=== PATIENT | male | born 1980 | race Caucasian/White ===

== ENCOUNTER → 2016-11-19 | Outpatient (CLI) | payer MEDICAID ==
[2016-11-19 08:13] LABS: Basophils % (A) 1 %; CH 32.3; CHCM 35.4; Eosinophils # (A) 0.2 k/uL (0-0.7); Eosinophils % (A) 3 %; HDW 2.72; HGB 15.8 gm/dL (13.0-17.5); Luc # (Auto) 0.14; Luc % (Auto) 2; Lymphocytes # (A) 1.8 k/uL (1.0-4.8); Lymphocytes % (A) 30 %; MCH 32.2 pg (25.0-35.0); MCHC 35.1 g/dL (31.0-37.0); MCV 91.5 fL (80.0-100.0); Mean Platelet Volume 6.9; Monocytes # (A) 0.4 k/uL (0-1.0); Monocytes % (A) 6 %; Neutrophils # (A) 3.4 k/uL (1.3-7.7); Neutrophils % (A) 58 %; RBC 4.92 m/uL (4.30-5.90); RDW 13.1 % (11.5-15.5); WBC 5.9 k/uL (3.8-10.6); WBC (Perox) 5.57
[2016-11-19 11:39] LABS: ALT 38 U/L (21-72); AST 27 U/L (17-59); Alkaline Phosphatase 85 U/L (38-126); Anion Gap 9 mmol/L; Blood Urea Nitrogen 21 mg/dL (9-20); Calcium 9.5 mg/dL (8.4-10.2); Carbon Dioxide 24 mmol/L (22-30); Chloride 107 mmol/L (98-107); Cholesterol 187 mg/dL (<200); Glucose 93 mg/dL (74-99); HDL Cholesterol 88 mg/dL (40-60); Non-African American GFR(MDRD) >60 (>60 ml/min/1.73 sqM); Potassium 4.4 mmol/L (3.5-5.1); Sodium 140 mmol/L (137-145); Total Bilirubin 0.7 mg/dL (0.2-1.3); Total Protein 7.3 g/dL (6.3-8.2); Triglycerides 81 mg/dL (<150)
[2016-11-19 13:12] LABS: Hemoglobin A1C 4.8 % (4.2-6.1)
== END ==
LOC: LABWHC1 07:33
PROVIDERS: ATTEND Family Medicine
DX: Z00.00 Encounter for general adult medical examination without abnormal findings (principal); Z13.220 Encounter for screening for lipoid disorders; R73.9 Hyperglycemia, unspecified; Z13.21 Encounter for screening for nutritional disorder; G40.909 Epilepsy, unspecified, not intractable, without status epilepticus
CPT/HCPCS: 36415; 80053; 80061; 80185; 82306; 83036; 84443; 85025

== ENCOUNTER → 2016-12-17 | Outpatient (CLI) | payer MEDICAID | END | disposition home or self-care (01) | LOC: LABWHC1 07:42 | PROVIDERS: ATTEND Family Medicine | DX: R56.9 Unspecified convulsions (principal) | CPT/HCPCS: 36415; 80185 ==

== ENCOUNTER 2017-10-21 09:06 | Observation (INO) | payer MEDICAID ==
[2017-10-21] MEDS ORDERED: ASPIRIN 81 MG PO STA (09:35)
[2017-10-21] MEDS ORDERED: NITROGLYCERIN OINT 1 INCH/GM PACKET TOPICAL STA (09:35)
[2017-10-21] MEDS ORDERED: MORPHINE SULFATE/PF 10MG/10ML VL IVP STA (09:35)
[2017-10-21] MEDS ORDERED: SODIUM CHLORIDE 0.9% 1,000 ML IV STA (09:35)
[2017-10-21] MEDS ORDERED: ONDANSETRON 4 MG/2 ML VIAL IVP STA (09:35)
[2017-10-21 09:58] LABS: Basophils % (A) 1 %; Eosinophils # (A) 0.2 k/uL (0-0.7); Eosinophils % (A) 4 %; HCT 41.7 % (39.0-53.0); HGB 15.6 gm/dL (13.0-17.5); Hyperchromasia Slight; Lymphocytes # (A) 1.2 k/uL (1.0-4.8); Lymphocytes % (A) 25 %; MCH 31.8 pg (25.0-35.0); MCHC 37.5 g/dL (31.0-37.0); MCV 84.9 fL (80.0-100.0); Mean Platelet Volume 6.6; Monocytes # (A) 0.3 k/uL (0-1.0); Monocytes % (A) 5 %; Neutrophils # (A) 3.2 k/uL (1.3-7.7); Neutrophils % (A) 64 %; Platelet Count 175 k/uL (150-450); RBC 4.91 m/uL (4.30-5.90)
[2017-10-21 10:11] LABS: ALT 41 U/L (21-72); AST 29 U/L (17-59); Albumin 4.4 g/dL (3.5-5.0); Alkaline Phosphatase 72 U/L (38-126); Anion Gap 15 mmol/L; Blood Urea Nitrogen 16 mg/dL (9-20); Calcium 9.4 mg/dL (8.4-10.2); Carbon Dioxide 21 mmol/L (22-30); Chloride 105 mmol/L (98-107); Glucose 85 mg/dL (74-99); Magnesium 1.9 mg/dL (1.6-2.3); Potassium 4.4 mmol/L (3.5-5.1); Sodium 141 mmol/L (137-145); Total Bilirubin 0.4 mg/dL (0.2-1.3); Total Protein 7.1 g/dL (6.3-8.2)
--- NOTE | 2017-10-21 10:18 | XR ---
EXAMINATION TYPE: XR chest 2V DATE OF EXAM: 10/21/2017 COMPARISON: NONE HISTORY: Right-sided chest pain. TECHNIQUE: Frontal and lateral views of the chest are obtained. FINDINGS: There is no focal air space opacity, pleural effusion, or pneumothorax seen. The cardiac silhouette size is within normal limits. The osseous structures are intact. IMPRESSION: No acute cardiopulmonary process.
[2017-10-21 10:20] LABS: D-Dimer 0.23 mg/L FEU (<0.60); INR 1.1 (<1.2); Partial Thromboplastin Time 24.7 sec (22.0-30.0); Prothrombin Time 10.6 sec (9.0-12.0)
[2017-10-21 10:53] LABS: Creatine Kinase 127 U/L (55-170)
[2017-10-21 10:57] LABS: Creatine Kinase MB 0.6 ng/mL (0.0-2.4); Troponin I <0.012 ng/mL (0.000-0.034)
--- NOTE | 2017-10-21 11:15 | ED ---
Chest Pain HPI - General Chief Complaint: Chest Pain Stated Complaint: Chest pain Time Seen by Provider: 10/21/17 09:26 Source: patient Mode of arrival: wheelchair Limitations: no limitations - History of Present Illness Initial Comments: 37 years old gentleman presented with a chest pain started last night 8 PM, pain been off-and-on and night gets worse with the deep breaths, he has no history of coronary artery disease in the past he has a history of seizure disorder he has been pretty compliant with his Dilantin he said he took him this morning chest pain is 2/10 but he moves septic 6/10 when he . No headaches no neck stiffness has chest pain no abdominal pain no frequency urgency dysuria no symptoms of TIA or CVA - Related Data Home Medications Medication Instructions Recorded Confirmed Ibuprofen 400 mg PO Q6H PRN 10/21/17 10/21/17 Phenytoin Sodium Extended 300 mg PO QAM 10/21/17 10/21/17 [Dilantin] Allergies Allergy/AdvReac Type Severity Reaction Status Date / Time No Known Allergies Allergy Verified 10/21/17 09:37 Review of Systems ROS Statement: Those systems with pertinent positive or pertinent negative responses have been documented in the HPI. ROS Other: All systems not noted in ROS Statement are negative. EKG Findings - EKG Comments: EKG Findings:: EKG is normal sinus rhythm ventricular rate is 81 CT interval is 160 QRS duration is 86 QT is QT/QTC 346/401 at aVF this EKG reveals some T-wave flattening in lead [address] elevation or ST depression. Noticed any other leads Past Medical History Past Medical History: Seizure Disorder History of Any Multi-Drug Resistant Organisms: None Reported Past Surgical History: AICD, Tonsillectomy Past Psychological History: No Psychological Hx Reported Smoking Status: Never smoker Past Alcohol Use History: Occasional Past Drug Use History: None Reported General Exam - General Exam Comments Initial Comments: General: The patient is awake and alert, in no distress, and does not appear acutely ill. Skin: Skin is warm and dry and no rashes or lesions are noted. Eye: Pupils are equal, round and reactive to light, extra-ocular movements are intact; there is normal conjunctiva bilaterally. Ears, nose, mouth and throat: There are moist mucous membranes and no oral lesions. Neck: The neck is supple, there is no tenderness or JVD. Cardiovascular: There is a regular rate and rhythm. No murmur, rub or gallop is appreciated. Respiratory: To auscultation bilateral, no wheezing no rhonchi no distress respiratory wade noticed Gastrointestinal: Soft, non-distended, non-tender abdomen without masses or organomegaly noted. There is no rebound or guarding present. Bowel sounds are unremarkable. Back: There is no tenderness to palpation in the midline. There is no obvious deformity. Musculoskeletal: Normal ROM, no tenderness, There is no pedal edema. There is no calf tenderness or swelling. No cords were appreciated. Neurological: CN II-XII intact, Cranial nerves III through XII are intact. There are no obvious motor or sensory deficits. Coordination appears grossly intact. Speech is normal. Psychiatric: Cooperative, appropriate mood & affect, normal judgment. Limitations: no limitations Course Vital Signs 10/21/17 10/21/17 10/21/17 09:18 09:31 10:31 Temperature 97.5 F L Pulse Rate 86 88 Pulse Rate [ 78 Supine Apical] Respiratory 18 16 Rate Blood Pressure 151/80 132/74 O2 Sat by Pulse 95 99 Oximetry 10/21/17 10:34 Temperature Pulse Rate 80 Pulse Rate [ Supine Apical] Respiratory 19 Rate Blood Pressure 132/71 O2 Sat by Pulse 97 Oximetry Reassessment chest x-ray, d-dimer, CBC, compressive metabolic panel, troponin are unremarkable patient be admitted WITH the 3 sets of cardiac markers and cardiology consult be admitted to Dr. Artem quinn Disposition Clinical Impression: Chest pain Disposition: ADMITTED IP TO THIS HOSP Condition: Good Referrals: Ashok Connor MD [Primary Care Provider] - 1-2 days
[2017-10-21] MEDS ORDERED: MORPHINE SULFATE/PF 10MG/10ML VL IVP PRN (11:17)
[2017-10-21] MEDS ORDERED: NITROGLYCERIN SL TABS 0.4 MG TAB SUBLINGUAL PRN (11:17)
[2017-10-21 16:35] LABS: Creatine Kinase 108 U/L (55-170)
[2017-10-21 16:47] LABS: Creatine Kinase MB 0.5 ng/mL (0.0-2.4); Troponin I <0.012 ng/mL (0.000-0.034)
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
[2017-10-21] MEDS: PANTOPRAZOLE 40 MG TABLET PO SCH (20:10)
[2017-10-21] MEDS ORDERED: NAPROXEN 250 MG TAB PO STA (20:28)
[2017-10-21] MEDS ORDERED: ZOLPIDEM 5 MG TAB PO PRN (20:29)
--- NOTE | 2017-10-21 21:27 | CONS ---
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 His pain is located at the 3rd and 4th costochondral junction on the right side with actual tenderness. It seems to get worse when he takes a deep breath. He does not recall any injury to this area. This actually started around last night, been on and off and seems to have gotten worse, but now he is actually feeling better. He is a very active person. He walks about 15,000 steps a day. He dances at least once or twice a week and has no problem. He is also reasonably active person. He has not had a stress test. He has a seizure disorder, takes Dilantin on a regular basis and his primary care physician is Dr. Connor. At the time of my evaluation, he is resting comfortably without symptoms. He does have a point tenderness on the right side in the 3rd and 4th costochondral area. PAST MEDICAL HISTORY: Remarkable for seizure disorder. He does not have any hypertension, diabetes, myocardial infarction or CVA. He is status post a tonsillectomy and adenoidectomy. ALLERGIES: None. MEDICATIONS: Dilantin sodium 300 mg daily, ibuprofen p.r.n. EXAMINATION: Pressure is 130/70, pulse rate is 70 per minute, regular. HEENT and HEENT: Unremarkable. Fundus was not examined by me. NECK: Supple. No JVD. I do not hear a carotid bruit. There is no thyromegaly. Heart exam reveals S1, S2 heard normally without a rub, murmur or gallop. Lungs are clear. ABDOMEN: Soft, nontender. Lower extremities reveal normal pulses. No edema. Central nervous system is normal. EKG revealed a sinus mechanism without any acute changes. There is a point tenderness in the right 3rd and 4th costochondral area. LABORATORY DATA: Reveals that his 2 sets of troponins are normal. His D-dimer is unremarkable. IMPRESSION: 1. Musculoskeletal costochondral pain, probable inflammation of unclear etiology. 2. History of seizure disorder. RECOMMENDATION: I am recommending that we discontinue his nitro paste, increase activity and he can be discharged tomorrow. I will give him some nonsteroidal anti-inflammatory agents for his pain. When his pain is fully resolved, he can have a stress test as an outpatient through his primary care physician or I will be happy to facilitate it. No further workup is necessary from a cardiac standpoint at this time. I discussed my thoughts in detail with the patient. Thank you very much for the consult. VICKY / HUMAIRA: [id number] /
[2017-10-21 21:33] LABS: Creatine Kinase 91 U/L (55-170)
[2017-10-21 21:47] LABS: Creatine Kinase MB 0.3 ng/mL (0.0-2.4); Troponin I <0.012 ng/mL (0.000-0.034)
[2017-10-22 08:44] VITALS: RESP 16; TEMP 98.1
[2017-10-22] MEDS ORDERED: PHENYTOIN SODIUM EXTENDED 100 MG CAP PO SCH (09:00)
[2017-10-22] MEDS ORDERED: ASPIRIN 325 MG TAB PO SCH (09:00)
[2017-10-22] MEDS: PANTOPRAZOLE 40 MG TABLET PO SCH (09:08)
[2017-10-22 11:02] LABS: Cholesterol 168 mg/dL (<200); HDL Cholesterol 81 mg/dL (40-60); LDL Cholesterol,Calculated 56 mg/dL (0-99); Triglycerides 157 mg/dL (<150)
[2017-10-22 11:54] VITALS: BP 132/78; PULSE 57
--- NOTE | 2017-10-22 14:19 | PN ---
PROGRESS NOTE This young man was admitted with a right sided costal chondritis-type picture involving the 3rd and 4th ribs at the costochondral junction. This pain has improved remarkably since we gave him some nonsteroidals. His vital signs are stable. He is resting comfortably. Denies any symptoms. I am recommending that he can be discharged and have a stress echo performed as an outpatient next week. Vital signs are stable. S1, S2 heard normally. Lungs are clear. Abdomen and lower extremity exam unchanged. Tenderness over the right 3rd and 4th costochondral junction is almost resolved completely. We will do a stress echocardiogram after discharge. Patient can return to work from Wednesday without restrictions. MMODL / IJN: [id number] /
--- NOTE | 2017-10-22 14:54 | P.DS ---
Providers Date of admission: 10/21/17 11:17 Expected date of discharge: 10/22/17 Attending physician: Roel De La Fuente Consults: 10/21/17 11:17 Consult Physician Urgent Consulting Provider: Jose Pichardo Consult Reason/Comments: Chest pain Do you want consulting provider notified?: Yes Primary care physician: Ashok Connor [facility] Course: 37 yr old C M patient of Dr. Connor with PMH of seizure disorder presents with sharp chest pain that started this morning when patient woke up. Patient denies any radiation of pain or SOB. Pain increases with movement and deep breathing. Patient had similiar episode a night before but went away by itself. Pain is reproducble on touch. ECG abd troponin were negative. Patient is kept in observation to r/o cardiac chest pain. Cardiology consult placed for evaluation. 10/22: Troponins were negative on 3 draws. Patient has been seen by cardiology and cleared for discharge with plan for outpatient stress testing. Patient continues to have some chest pain but better. He states there when he takes a deep breath or when he tries to get out of bed he can feel it. Patient instructed to continue ibuprofen and Protonix added to prevent gastritis. Patient will be discharged home today in stable condition. Discharge diagnoses: 1. Acute chest pain likely secondaary to costochondritis 2. Seizure disorder Discharge plan: Home Impression and plan of care have been directed as dictated by the signing physician. Mi Abreu nurse practitioner acting as scribe for signing physician. Patient Condition at Discharge: Good Plan - Discharge Summary Discharge Rx Participant: Yes New Discharge Prescriptions: New Pantoprazole [Protonix] 40 mg PO DAILY #30 tablet. No Action Phenytoin Sodium Extended [Dilantin] 300 mg PO QAM Ibuprofen 400 mg PO Q6H PRN PRN Reason: Pain Discharge Medication List Ibuprofen 400 mg PO Q6H PRN 10/21/17 [History] Phenytoin Sodium Extended [Dilantin] 300 mg PO QAM 10/21/17 [History] Pantoprazole [Protonix] 40 mg PO DAILY #30 tablet. 10/22/17 [Rx] Follow up Appointment(s)/Referral(s): Bella Espinosa MD [STAFF PHYSICIAN] - 2 Weeks (will need to set up Echo & Stress test through [facility]) Ashok Connor MD [Primary Care Provider] - 1 Week Patient Instructions/Handouts: Chest Pain (DC) Discharge Disposition: HOME SELF-CARE
== END 2017-10-22 14:12 | disposition home or self-care (01) ==
LOC: EC 09:06 → 3OBS 11:17
PROVIDERS: ADMIT Internal Medicine; ATTEND Internal Medicine
DX: R07.89 Other chest pain (principal); G40.909 Epilepsy, unspecified, not intractable, without status epilepticus; G47.30 Sleep apnea, unspecified; Z99.89 Dependence on other enabling machines and devices; Z79.899 Other long term (current) drug therapy; Z82.5 Family history of asthma and other chronic lower respiratory diseases; Z83.3 Family history of diabetes mellitus; Z82.49 Family history of ischemic heart disease and other diseases of the circulatory system; Z82.0 Family history of epilepsy and other diseases of the nervous system; Z81.2 Family history of tobacco abuse and dependence
CPT/HCPCS: 99285 ×2; 96360 ×2; 96361 ×9; 36415; 93005; 85379; 80061; 80053; 82550; 82553; 83735; 84484; 85025; 85610; 85730; 71046; G0378 ×2

== ENCOUNTER → 2017-11-05 | Outpatient (CLI) | payer MEDICAID ==
--- NOTE | 2017-11-05 12:34 | ECHOS ---
STRESS ECHOCARDIOGRAM DATE OF SERVICE: 11/05/2017 INDICATIONS: Chest pain. MEDICATIONS: Dilantin. BASELINE HEART RATE: 83 BASELINE BLOOD PRESSURE: 108/56 MAXIMUM HEART RATE: 169 MAXIMUM BLOOD PRESSURE: 151/73 85% MPHR: 157 100% MPHR: 185 METS: 11.7 MAXIMUM STAGE REACHED: IV TOTAL EXERCISE TIME: 10:15 CLINICAL INFORMATION: A 37-year-old male patient referred for evaluation of chest pain. Baseline heart rate 83 beats per minute. Baseline blood pressure 108/56 mmHg. Baseline 12-lead ECG shows normal sinus rhythm with normal cardiac intervals. Patient exercised on a Nahid protocol for 10 minutes 15 seconds achieving a peak heart rate of 169 beats per minute. Normal blood pressure response to exercise. There was no ECG evidence for ischemia. No exercise-induced arrhythmias noted. Baseline 2-D echo images showed normal LV size and systolic function without segmental wall motion abnormalities. At peak exercise, there was excellent augmentation of overall LV contractility without development of any wall motion abnormalities. At recovery regional global LV systolic function remains normal. IMPRESSION: 1. No ECG evidence for ischemia. 2. No echocardiographic evidence for ischemia. 3. Excellent exercise capacity. 4. Normal heart rate and blood pressure response to exercise. MMODL / IJN: [id number] /
== END | disposition home or self-care (01) ==
LOC: RADNMMAIN 09:03
PROVIDERS: ATTEND Internal Medicine Interventional Cardiology
DX: R07.9 Chest pain, unspecified (principal)
CPT/HCPCS: 93017; 93350

== ENCOUNTER → 2017-12-17 | Outpatient (CLI) | payer MEDICAID ==
[2017-12-17 08:05] LABS: Basophils % (A) 0 %; Eosinophils # (A) 0.2 k/uL (0-0.7); Eosinophils % (A) 4 %; HCT 44.6 % (39.0-53.0); HGB 15.4 gm/dL (13.0-17.5); Lymphocytes # (A) 1.7 k/uL (1.0-4.8); Lymphocytes % (A) 33 %; MCH 30.5 pg (25.0-35.0); MCHC 34.4 g/dL (31.0-37.0); MCV 88.7 fL (80.0-100.0); Mean Platelet Volume 7.2; Monocytes # (A) 0.3 k/uL (0-1.0); Monocytes % (A) 6 %; Neutrophils # (A) 2.9 k/uL (1.3-7.7); Neutrophils % (A) 55 %; Platelet Count 188 k/uL (150-450); RBC 5.03 m/uL (4.30-5.90); RDW 12.7 % (11.5-15.5); WBC 5.3 k/uL (3.8-10.6)
[2017-12-17 08:34] LABS: ALT 36 U/L (21-72); AST 22 U/L (17-59); Albumin 4.3 g/dL (3.5-5.0); Alkaline Phosphatase 79 U/L (38-126); Anion Gap 15 mmol/L; Blood Urea Nitrogen 23 mg/dL (9-20); Calcium 9.5 mg/dL (8.4-10.2); Carbon Dioxide 23 mmol/L (22-30); Chloride 106 mmol/L (98-107); Cholesterol 173 mg/dL (<200); Glucose 97 mg/dL (74-99); HDL Cholesterol 79 mg/dL (40-60); LDL Cholesterol,Calculated 75 mg/dL (0-99); Phenytoin (Dilantin) 8.3 ug/mL; Potassium 4.3 mmol/L (3.5-5.1); Sodium 144 mmol/L (137-145); Total Bilirubin 0.5 mg/dL (0.2-1.3); Triglycerides 96 mg/dL (<150)
== END | disposition home or self-care (01) ==
LOC: LABWHC1 07:45
PROVIDERS: ATTEND Family Medicine
DX: G40.909 Epilepsy, unspecified, not intractable, without status epilepticus (principal); E55.9 Vitamin D deficiency, unspecified; R73.9 Hyperglycemia, unspecified
CPT/HCPCS: 36415; 80053; 80061; 80185; 82306; 84443; 85025

== ENCOUNTER → 2020-05-07 | Outpatient (CLI) | payer MEDICAID ==
[2020-05-07 10:55] LABS: Basophils % (A) 1 %; Eosinophils # (A) 0.1 k/uL (0-0.7); Eosinophils % (A) 2 %; HCT 47.6 % (39.0-53.0); HGB 16.2 gm/dL (13.0-17.5); Lymphocytes # (A) 1.5 k/uL (1.0-4.8); Lymphocytes % (A) 25 %; MCH 31.6 pg (25.0-35.0); MCHC 33.9 g/dL (31.0-37.0); Mean Platelet Volume 7.2; Monocytes # (A) 0.4 k/uL (0-1.0); Monocytes % (A) 7 %; Neutrophils # (A) 3.9 k/uL (1.3-7.7); Neutrophils % (A) 64 %; Platelet Count 176 k/uL (150-450); RBC 5.12 m/uL (4.30-5.90); RDW 12.2 % (11.5-15.5); WBC 6.1 k/uL (3.8-10.6)
[2020-05-07 15:04] LABS: Phenytoin (Dilantin) 7.9 ug/mL (10.0-20.0)
[2020-05-07 20:23] LABS: African American GFR (CKD) 125.1 (60.0-200.0); Albumin 4.6 g/dL (3.80-4.90); Albumin/Globulin Ratio 1.92 (1.60-3.17); Anion Gap 12.2 mmol/L (4.00-12.00); Calcium 9.6 mg/dL (8.7-10.3); Carbon Dioxide 21.8 mmol/L (21.6-31.8); Chol/HDL Ratio 2.92; Globulin 2.4 g/dL (1.6-3.3); LDL Cholesterol,Calculated 127.4 mg/dL (0.0-131.0); Potassium 4.3 mmol/L (3.5-5.5); Total Bilirubin 0.4 mg/dL (0.2-1.2); VLDL Calculation 14.6 mg/dL (5.00-40.00)
== END | disposition home or self-care (01) ==
LOC: LABWHC1 08:10
PROVIDERS: ATTEND Family Medicine
DX: Z00.00 Encounter for general adult medical examination without abnormal findings (principal); G40.909 Epilepsy, unspecified, not intractable, without status epilepticus
CPT/HCPCS: 36415; 80053; 80061; 80185; 84443; 85025

== ENCOUNTER → 2020-05-23 | Outpatient (CLI) | payer MEDICAID ==
--- NOTE | 2020-05-24 10:47 | ECHOF ---
Referral Reason:K81.0 Acute cholecystitis MEASUREMENTS -------- HEIGHT: 185.4 cm WEIGHT: 115.7 kg BP: 127/63 RVIDd: 3.2 cm (< 3.3) IVSd: 1.2 cm (0.6 - 1.1) LVIDd: 5.0 cm (3.9 - 5.3) LVPWd: 1.1 cm (0.6 - 1.1) IVSs: 1.6 cm LVIDs: 3.2 cm LVPWs: 1.6 cm LA Diam: 3.6 cm (2.7 - 3.8) LAESV Index (A-L): 18.87 ml/m Ao Diam: 3.3 cm (2.0 - 3.7) AV Cusp: 2.2 cm (1.5 - 2.6) MV EXCURSION: 24.989 mm (> 18.000) MV EF SLOPE: 204 mm/s (70 - 150) EPSS: 0.5 cm MV E Hieu: 0.69 m/s MV DecT: 199 ms MV A Hieu: 0.68 m/s MV E/A Ratio: 1.01 FINDINGS -------- Sinus rhythm. This was a technically good study. The left ventricular size is normal. There is borderline concentric left ventricular hypertrophy. Overall left ventricular systolic function is normal with, an EF between 60 - 65 %. The right ventricle is normal in size. Normal LA size by volume 22+/-6 ml/m2. The right atrium is normal in size. Interatrial and interventricular septum intact. The aortic valve is trileaflet and appears structurally normal. The mitral valve is normal. The tricuspid valve appears structurally normal. Trace/mild (physiologic) pulmonic regurgitation. The aortic root size is normal. Normal inferior vena cava with normal inspiratory collapse consistent with estimated right atrial pre ssure of 5 mmHg. There is no pericardial effusion. CONCLUSIONS -------- 1. The left ventricular size is normal. 2. There is borderline concentric left ventricular hypertrophy. 3. Overall left ventricular systolic function is normal with, an EF between 60 - 65 %. 4. The aortic valve is trileaflet and appears structurally normal. 5. Trace/mild (physiologic) pulmonic regurgitation. 6. There is no pericardial effusion. SHINE WORKER: Tricia Gruber RDCS
== END | disposition home or self-care (01) ==
LOC: RADECHMAIN 14:50
PROVIDERS: ATTEND Internal Medicine Interventional Cardiology
DX: I51.7 Cardiomegaly (principal); I37.1 Nonrheumatic pulmonary valve insufficiency
CPT/HCPCS: 93306

== ENCOUNTER → 2021-05-23 | Outpatient (CLI) | payer MEDICAID ==
[2021-05-23 10:58] LABS: Basophils # (A) 0.02 X 10*3/uL (0.00-0.10); Basophils % (A) 0.4 %; Eosinophils # (A) 0.17 X 10*3/uL (0.04-0.35); Eosinophils % (A) 3.2 %; HCT 43.1 % (39.6-50.0); HGB 15.1 g/dL (13.0-17.0); Lymphocytes # (A) 1.98 X 10*3/uL (0.90-5.00); Lymphocytes % (A) 36.8 %; MCH 31.9 pg (27.0-32.0); MCV 90.9 fL (80.0-97.0); Mean Platelet Volume 9.9 fL (9.5-12.2); Monocytes # (A) 0.44 X 10*3/uL (0.20-1.00); Monocytes % (A) 8.2 %; Neutrophils # (A) 2.76 X 10*3/uL (1.80-7.70); Neutrophils % (A) 51.2 %; Platelet Count 175 X 10*3/uL (140-440); RBC 4.74 X 10*6/uL (4.40-5.60); RDW 12.3 % (11.5-14.5); WBC 5.38 X 10*3/uL (4.50-10.00)
[2021-05-23 12:54] LABS: Phenytoin (Dilantin) 7.1 ug/mL (10.0-20.0)
[2021-05-23 13:08] LABS: African American GFR (CKD) 129.8 (60.0-200.0); Albumin 4.4 g/dL (3.8-4.9); Anion Gap 11.7 mmol/L (4.00-12.00); BUN/Creat Ratio 26.7 Ratio (12.00-20.00); Blood Urea Nitrogen 21.6 mg/dL (9.0-27.0); Calcium 9.3 mg/dL (8.7-10.3); Carbon Dioxide 21.7 mmol/L (21.6-31.8); Chol/HDL Ratio 2.87 Ratio; Globulin 2.2 g/dL (1.6-3.3); HDL Cholesterol 70.1 mg/dL (40.00-60.00); LDL Cholesterol,Calculated 109.1 mg/dL (0.0-131.0); Potassium 4.3 mmol/L (3.5-5.5); Total Bilirubin 0.3 mg/dL (0.30-1.20); Total Protein 6.6 g/dL (6.2-8.2); VLDL Calculation 21.8 mg/dL (5.00-40.00)
== END | disposition home or self-care (01) ==
LOC: LABWHC1 07:06
PROVIDERS: ATTEND Family Medicine
DX: Z00.00 Encounter for general adult medical examination without abnormal findings (principal); G40.909 Epilepsy, unspecified, not intractable, without status epilepticus; E55.9 Vitamin D deficiency, unspecified
CPT/HCPCS: 36415; 80053; 80061; 80185; 82306; 84443; 85025

== ENCOUNTER → 2021-08-02 | Outpatient (CLI) | payer MEDICAID, OTHER | END | disposition home or self-care (01) | LOC: LABWHC1 10:07 | PROVIDERS: ATTEND Emergency Medicine | DX: Z20.822 Contact with and (suspected) exposure to COVID-19 (principal) | CPT/HCPCS: 87635 ==

== ENCOUNTER → 2021-08-03 | Outpatient (CLI) | payer MEDICAID, OTHER | END | disposition home or self-care (01) | LOC: LABWHC1 09:06 | PROVIDERS: ATTEND Emergency Medicine | DX: Z20.822 Contact with and (suspected) exposure to COVID-19 (principal) | CPT/HCPCS: 87635 ==

== ENCOUNTER 2021-11-14 11:52 | Emergency (ER) | payer MEDICAID, OTHER ==
[2021-11-14 12:09] VITALS: BP 146/94; PULSE 104; RESP 18; TEMP 98.2
[2021-11-14 13:03] LABS: Basophils % (A) 0 %; Eosinophils # (A) 0.1 k/uL (0-0.7); Eosinophils % (A) 1 %; HCT 45.6 % (39.0-53.0); HGB 16.1 gm/dL (13.0-17.5); Lymphocytes # (A) 1.3 k/uL (1.0-4.8); Lymphocytes % (A) 13 %; MCH 32.2 pg (25.0-35.0); MCHC 35.3 g/dL (31.0-37.0); MCV 91.2 fL (80.0-100.0); Mean Platelet Volume 7.3; Monocytes # (A) 0.6 k/uL (0-1.0); Monocytes % (A) 5 %; Neutrophils # (A) 8.5 k/uL (1.3-7.7); Neutrophils % (A) 80 %; Platelet Count 182 k/uL (150-450); RDW 12.9 % (11.5-15.5); WBC 10.6 k/uL (3.8-10.6)
[2021-11-14 13:06] LABS: ALT 27 U/L (4-49); AST 23 U/L (17-59); African American GFR (CKD) >90 (>60 ml/min/1.73 sqM); Albumin 4.5 g/dL (3.5-5.0); Alkaline Phosphatase 110 U/L (38-126); Amylase 64 U/L (30-110); Anion Gap 8 mmol/L; Blood Urea Nitrogen 15 mg/dL (9-20); Calcium 9.3 mg/dL (8.4-10.2); Carbon Dioxide 24 mmol/L (22-30); Chloride 104 mmol/L (98-107); Glucose 102 mg/dL (74-99); Lipase 61 U/L (23-300); Non-African American GFR(CKD) >90 (>60 ml/min/1.73 sqM); Potassium 3.9 mmol/L (3.5-5.1); Sodium 136 mmol/L (137-145); Total Bilirubin 0.7 mg/dL (0.2-1.3); Total Protein 7.5 g/dL (6.3-8.2)
[2021-11-14 13:07] LABS: Appearance,Urine Clear (Clear); Bilirubin,Urine Negative (Negative); Blood,Urine Negative (Negative); Color,Urine Yellow; Glucose,Urine (UA) Negative (Negative); Ketones,Urine Negative (Negative); Leukocyte Esterase,Urine Negative (Negative); Nitrite,Urine Negative (Negative); PH, Urine 5.5 (5.0-8.0); Protein,Urine Negative (Negative); Specific Gravity,Urine 1.011 (1.001-1.035); Urobilinogen,Urine <2.0 mg/dL (<2.0)
[2021-11-14 13:09] LABS: Partial Thromboplastin Time 26.5 sec (22.0-30.0); Prothrombin Time 10.5 sec (9.0-12.0)
--- NOTE | 2021-11-14 14:04 | CT ---
EXAMINATION TYPE: CT abdomen pelvis w con DATE OF EXAM: 11/14/2021 COMPARISON: HISTORY: Abdominal pain CT DLP: 2741.7 mGycm Automated exposure control for dose reduction was used. TECHNIQUE: Helical acquisition of images from the lung bases through the pelvis have been completed. CONTRAST: Performed and with IV Contrast, patient injected with 100 mL of Isovue 300. FINDINGS: Umbilical hernia contains fat LUNG BASES: No significant abnormality is appreciated. AORTA: No significant abnormality is appreciated. LIVER/GB: Probable cysts scattered within the liver, gallbladder within normal limits, liver shows lo w attenuation likely due to hepatic steatosis. PANCREAS: No significant abnormality is seen. SPLEEN: No significant abnormality is seen. ADRENALS: No significant abnormality is seen. KIDNEYS: No significant abnormality is seen. REPRODUCTIVE ORGANS: No significant abnormality is seen BOWEL: Abnormal thickening the sigmoid colon is present, there is pericolonic inflammatory change, d iverticular change in the sigmoid colon within the pelvis, some local fluid attenuation is present, n o evident abscess. FREE AIR: No Free Air visible. ASCITES: None visible. PELVIC ADENOPATHY: None visualized. RETROPERITONEAL ADENOPATHY: No Retroperitoneal Adenopathy visible. URINARY BLADDER: No significant abnormality is seen. OSSEOUS STRUCTURES: No significant abnormality is seen. IMPRESSION: FINDINGS SUGGEST DIVERTICULITIS, FOLLOW-UP RECOMMENDED
[2021-11-14] MEDS ORDERED: AMOXIC-POT CLAV 875-125MG 1 EACH TAB PO STA (14:11)
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
== END 2021-11-14 14:54 | disposition home or self-care (01) ==
LOC: EC 11:52
DX: K57.32 Diverticulitis of large intestine without perforation or abscess without bleeding (principal); G40.909 Epilepsy, unspecified, not intractable, without status epilepticus; Z79.899 Other long term (current) drug therapy
CPT/HCPCS: 36415; 80053; 82150; 83605; 83690; 85025; 85610; 85730; 81003; 74177; 99284; Q9967

== ENCOUNTER 2022-01-30 11:03 | Day surgery (SDC) | payer MEDICAID, OTHER ==
[2022-01-27 13:52] VITALS: BMI 33.6
[~2022-01-30 11:03] MED LIST: LACTATED RINGERS 1,000 ML IV SCH; LIDOCAINE 1% (10MG/ML) FOR IV START INTRADERMA PRN
[2022-01-30 11:39] VITALS: RESP 16; TEMP 98.4
[2022-01-30] MEDS ORDERED: PROPOFOL 10 MG/ML 20 ML VIAL IV ONE (11:46)
--- NOTE | 2022-01-30 12:11 | P.OP ---
Date of Procedure: 01/30/22 Preoperative Diagnosis: Diverticulitis Postoperative Diagnosis: Diverticulosis Polyp x 2 Procedure(s) Performed: Colonoscopy with hot snare polypectomy x 2 Anesthesia: MAC Surgeon: Renato Campos Estimated Blood Loss (ml): 1 Condition: stable Disposition: same day Description of Procedure: Patient is brought Endo suite placed left lateral decubitus position underwent sedation per department of anesthesia timeout performed correct patient correct procedure correct site was verified rectal exam was performed no gross abnormalities are noted scope was passed from the rectum to the cecum with ease and slowly withdrawn make sure to visualize all [place] of the colon on the way out at the hepatic flexure there is a small polyp this was removed via hot snare polypectomy and sent to pathology. There was sigmoid diverticuli noted there is few sigmoid diverticuli and there were small. There is a polyp noted at approximately 1 cm within the rectum from the anal verge this was removed via hot snare polypectomy this is a very small polyp. No other gross abnormalities are noted patient tolerated the procedure well no apparent complications on the repeat colonoscopy in 5 years
[2022-01-30 13:14] VITALS: BP 131/70; PULSE 82
== END 2022-01-30 13:15 | disposition home or self-care (01) ==
LOC: ORWHC2ENDO 11:03
PROVIDERS: ATTEND Student in an Organized Health Care Education/Training Program
DX: K57.30 Diverticulosis of large intestine without perforation or abscess without bleeding (principal); D12.3 Benign neoplasm of transverse colon; C7A.026 Malignant carcinoid tumor of the rectum; G40.909 Epilepsy, unspecified, not intractable, without status epilepticus; G47.33 Obstructive sleep apnea (adult) (pediatric); Z98.890 Other specified postprocedural states; Z79.1 Long term (current) use of non-steroidal anti-inflammatories (NSAID); Z79.899 Other long term (current) drug therapy
CPT/HCPCS: 88305; 88342; 88341; 45385; J2704; 45380

== ENCOUNTER 2022-02-13 12:50 | Day surgery (SDC) | payer MEDICAID ==
[2022-02-12 09:47] VITALS: BMI 33.0
[~2022-02-13 12:50] MED LIST changes: +DEXAMETHASONE SOD PHOSPHATE 4 MG/ML 1 ML VIAL IV ONE; +HEPARIN SODIUM,PORCINE/PF 5,000 UNIT/0.5 ML SYRINGE SQ PRN; +HYDROmorphone 0.5 MG/0.5 ML SYRINGE IVP PRN; +ONDANSETRON 4 MG/2 ML VIAL IVP ONE; +Pre Op ABX Message 1 EACH MISC MISCELLANE ONE; +SCOPOLAMINE 1 MG/72 HR PATCH TRANSDERM ONE
[2022-02-13 13:26] VITALS: RESP 16
[2022-02-13] MEDS ORDERED: MIDAZOLAM 2 MG/2 ML VIAL IVP ONE (13:38)
[2022-02-13] MEDS ORDERED: PROPOFOL 10 MG/ML 20 ML VIAL IV ONE (13:55)
[2022-02-13] MEDS ORDERED: LIDOCAINE 2% INJ 20 MG/ML (2 ML VIAL) ONE (13:55)
[2022-02-13] MEDS ORDERED: MIDAZOLAM 2 MG/2 ML VIAL ONE (13:55)
[2022-02-13] MEDS ORDERED: SUCCINYLCHOLINE CHLORIDE 100 MG/5 ML SYR IV ONE (13:55)
[2022-02-13] MEDS ORDERED: fentaNYL (PF) 50 MCG/ML 2 ML AMP ONE (13:55)
[2022-02-13] MEDS ORDERED: SODIUM CHLORIDE 0.9% 100 ML with ceFAZolin 2,000 MG IV ONE ×2 (14:27)
[2022-02-13] MEDS ORDERED: BUPIVACAIN-EPI 0.25%-1:200,000 30 ML VIAL SQ ONE (14:30)
[2022-02-13] MEDS ORDERED: LACTATED RINGERS 1,000 ML IV ONE ×2 (14:46)
[2022-02-13] MEDS ORDERED: GELATIN SPONGE,ABSORB (SMALL) 1 EACH SPONGE TOPICAL ONE (14:51)
[2022-02-13] MEDS ORDERED: GELATIN SPONGE,ABSORB (LARGE) 1 EACH SPONGE TOPICAL ONE (15:03)
[2022-02-13 15:25] VITALS: TEMP 97
--- NOTE | 2022-02-13 15:28 | P.OP ---
Date of Procedure: 02/13/22 Preoperative Diagnosis: Rectal carcinoid tumor Postoperative Diagnosis: Same Procedure(s) Performed: Transanal excision of rectal carcinoid tumor Anesthesia: DEBO Surgeon: Renato Campos Estimated Blood Loss (ml): 10 Condition: stable Disposition: same day Description of Procedure: Patient was brought into the operative suite and underwent general endotracheal anesthesia was placed in the prone jackknife position he was prepped and draped in usual sterile fashion timeout performed correct patient correct procedure correct site was verified rectal exam was performed and the retractor was placed there was a palpable nodule consistent with the carcinoid tumor approximately 2 or 3 mm this was noted at 9:00 in the left lateral rectum. This is approximately 4 cm from the anal verge. The mass was grasped with a right angle and retracted and using a 15 blade scalpel full-thickness excision was performed and the specimen was sent to pathology 3-0 Vicryl simple interrupted sutures were used to close the defect hemostasis was noted and rolled Gelfoam was placed. Patient tolerated the procedure well there are no apparent complications Plan - Discharge Summary Discharge Rx Participant: Yes New Discharge Prescriptions: No Action Phenytoin Sodium Extended [Dilantin] 300 mg PO QAM Ibuprofen 400 mg PO Q6H PRN PRN Reason: Pain Discharge Medication List Ibuprofen 400 mg PO Q6H PRN 10/21/17 [History] Phenytoin Sodium Extended [Dilantin] 300 mg PO QAM 10/21/17 [History]
[2022-02-13] MEDS ORDERED: HYDROcodone/APAP 5-325MG 1 EACH TAB ONE (16:00)
[2022-02-13] MEDS ORDERED: HYDROcodone/APAP 5-325MG 1 EACH TAB PO ONE (16:02)
[2022-02-13 16:32] VITALS: BP 129/78; PULSE 76
== END 2022-02-13 16:50 | disposition home or self-care (01) ==
LOC: OR 12:50
PROVIDERS: ATTEND Student in an Organized Health Care Education/Training Program
DX: K62.89 Other specified diseases of anus and rectum (principal); Z85.040 Personal history of malignant carcinoid tumor of rectum; R56.9 Unspecified convulsions; Z79.899 Other long term (current) drug therapy; Z80.42 Family history of malignant neoplasm of prostate; Z83.6 Family history of other diseases of the respiratory system
CPT/HCPCS: 88305; 45172; J2250; J1100; J2405; J0690; J3010; J0330; J2704; J1170; J1644; J2001

== ENCOUNTER → 2022-06-01 | Outpatient (CLI) | payer MEDICAID ==
[2022-06-01 10:27] LABS: Basophils # (A) 0.02 X 10*3/uL (0.00-0.10); Basophils % (A) 0.4 %; Eosinophils # (A) 0.18 X 10*3/uL (0.04-0.35); Eosinophils % (A) 3.3 %; HCT 42.3 % (39.6-50.0); Immature Grans, Automated 0.4 %; Lymphocytes # (A) 1.68 X 10*3/uL (0.90-5.00); Lymphocytes % (A) 30.5 %; MCH 31.2 pg (27.0-32.0); MCHC 35.5 g/dL (32.0-37.0); MCV 87.9 fL (80.0-97.0); Mean Platelet Volume 10.2 fL (9.5-12.2); Monocytes % (A) 7.3 %; NRBC Per 100 WBC 0 /100 WBCS (0.0-0.0); Neutrophils % (A) 58.1 %; Platelet Count 163 X 10*3/uL (140-440); RBC 4.81 X 10*6/uL (4.40-5.60); RDW 12.3 % (11.5-14.5)
[2022-06-01 10:56] LABS: ALT 27 U/L (10-49); AST 19 U/L (14-35); African American GFR (CKD) 129.5 (60.0-200.0); Albumin 4.4 g/dL (3.8-4.9); Alkaline Phosphatase 86 U/L (41-126); Blood Urea Nitrogen 19.6 mg/dL (9.0-27.0); Carbon Dioxide 22.6 mmol/L (20.0-27.5); Chloride 105 mmol/L (96-109); Chol/HDL Ratio 2.99 Ratio; Globulin 2.2 g/dL (1.6-3.3); Glucose 97 mg/dL (70-110); LDL Cholesterol,Calculated 122.1 mg/dL (0.0-131.0); Non-African American GFR(CKD) 111.7 (60.0-200.0); Phenytoin (Dilantin) 8.9 ug/mL (10.0-20.0); Potassium 4.3 mmol/L (3.5-5.5); Sodium 139 mmol/L (135-145); Total Protein 6.6 g/dL (6.2-8.2); VLDL Calculation 12.98 mg/dL (5.00-40.00)
== END | disposition home or self-care (01) ==
LOC: LABWHC1 07:22
PROVIDERS: ATTEND Family Medicine
DX: Z12.5 Encounter for screening for malignant neoplasm of prostate (principal); G40.909 Epilepsy, unspecified, not intractable, without status epilepticus; E55.9 Vitamin D deficiency, unspecified; R73.9 Hyperglycemia, unspecified
CPT/HCPCS: 80061; 80053; 80185; 84443; 85025; 82306; 83036; 36415; G0103

== ENCOUNTER 2022-08-11 10:48 | Day surgery (SDC) | payer MEDICAID ==
[~2022-08-11 10:48] MED LIST changes: -DEXAMETHASONE SOD PHOSPHATE 4 MG/ML 1 ML VIAL IV ONE; -HEPARIN SODIUM,PORCINE/PF 5,000 UNIT/0.5 ML SYRINGE SQ PRN; -HYDROmorphone 0.5 MG/0.5 ML SYRINGE IVP PRN; -ONDANSETRON 4 MG/2 ML VIAL IVP ONE; -Pre Op ABX Message 1 EACH MISC MISCELLANE ONE; -SCOPOLAMINE 1 MG/72 HR PATCH TRANSDERM ONE
[2022-08-11 11:37] VITALS: TEMP 97.5
[2022-08-11] MEDS ORDERED: PROPOFOL 10 MG/ML 20 ML VIAL IV ONE (12:14)
--- NOTE | 2022-08-11 12:25 | P.PCN ---
Date of Procedure: 08/11/22 Procedure(s) Performed: PREOPERATIVE DIAGNOSIS: History of rectal carcinoid POSTOPERATIVE DIAGNOSIS: Small rectal polyp PROCEDURE: Flex sigmoidoscopy with snare polypectomy ANESTHESIA: MAC SURGEON: Eleazar Marin M.D. SPECIMENS: Polyp ENDOSCOPIC PROCEDURE: The patient was placed on the endoscopy table in the left decubitus position. The Olympus sigmoidoscope was inserted into the anus and passed under direct visualization to the sigmoid colon. The patient had some retained stool. Despite that we're able to visualize the rectum fairly well. Approximate 3 cm from the anal verge in the left posterior lateral location there was a 7 mm polyp that was removed using the snare with cautery technique. I was not able to visualize with certainty a previous scar from the previous resection. This polyp was removed using the snare with cautery technique. This had a fairly narrow base. This was sent bowel pathology for close examination. No diverticulosis was visualized. Digital rectal examination was normal. The patient was taken to the recovery room in stable condition per anesthesia guidelines. RECOMMENDATIONS: Await biopsy results
[2022-08-11 12:58] VITALS: BP 130/80; PULSE 78; RESP 15
== END 2022-08-11 12:55 | disposition home or self-care (01) ==
LOC: ORWHC2ENDO 10:48
PROVIDERS: ATTEND Surgery
DX: K62.1 Rectal polyp (principal); G40.909 Epilepsy, unspecified, not intractable, without status epilepticus; Z79.899 Other long term (current) drug therapy
CPT/HCPCS: 45338; J2704; 88305

== ENCOUNTER → 2023-08-19 | Outpatient (CLI) | payer MEDICAID ==
[2023-08-19 11:17] LABS: Basophils # (A) 0.03 X 10*3/uL (0.00-0.10); Basophils % (A) 0.5 %; Eosinophils # (A) 0.15 X 10*3/uL (0.04-0.35); Eosinophils % (A) 2.5 %; HCT 44.1 % (39.6-50.0); HGB 15.6 g/dL (13.0-17.0); Lymphocytes # (A) 1.91 X 10*3/uL (0.90-5.00); Lymphocytes % (A) 31.7 %; MCH 29.9 pg (27.0-32.0); MCHC 35.4 g/dL (32.0-37.0); MCV 84.6 FL (80.0-97.0); Mean Platelet Volume 9.7 FL (9.5-12.2); Monocytes # (A) 0.41 X 10*3/uL (0.20-1.00); Monocytes % (A) 6.8 %; NRBC Per 100 WBC 0 X 10*3/uL (0.00-0.01); Neutrophils % (A) 58.2 %; Platelet Count 200 X 10*3/uL (140-440); RBC 5.21 X 10*6/uL (4.40-5.60); RDW 12.1 % (11.5-14.5); WBC 6.02 X 10*3/uL (4.50-10.00)
[2023-08-19 12:07] LABS: ALT 23 U/L (10-49); AST 18 U/L (14-35); Albumin 4.4 g/dL (3.8-4.9); Albumin/Globulin Ratio 1.76 Ratio (1.60-3.17); Alkaline Phosphatase 91 U/L (41-126); BUN/Creat Ratio 23.11 Ratio (12.00-20.00); Blood Urea Nitrogen 20.8 mg/dL (9.0-27.0); Calcium 9.7 mg/dL (8.7-10.3); Carbon Dioxide 23.2 mmol/L (21.6-31.8); Chloride 104 mmol/L (96-109); Chol/HDL Ratio 3.64 Ratio; Globulin 2.5 g/dL (1.6-3.3); Glucose 106 mg/dL (70-110); LDL Cholesterol,Calculated 133.8 mg/dL (0.0-131.0); Potassium 4.4 mmol/L (3.5-5.5); Prostate Specific Antigen 1.05 ng/mL (0.000-2.500); Sodium 139 mmol/L (135-145); Total Bilirubin 0.4 mg/dL (0.3-1.2); Total Protein 6.9 g/dL (6.2-8.2); VLDL Calculation 14.88 mg/dL (5.00-40.00)
[2023-08-19 12:25] LABS: Phenytoin (Dilantin) 7.4 UG/ML (10.0-20.0)
== END | disposition home or self-care (01) ==
LOC: LABWHC1 07:02
PROVIDERS: ATTEND Family Medicine
DX: G40.909 Epilepsy, unspecified, not intractable, without status epilepticus (principal); Z12.5 Encounter for screening for malignant neoplasm of prostate; E55.9 Vitamin D deficiency, unspecified; R73.9 Hyperglycemia, unspecified
CPT/HCPCS: 36415; 80053; 80061; 80185; 82306; 84153; 84443; 85025

== ENCOUNTER → 2023-11-16 | Outpatient (CLI) | payer MEDICAID ==
--- NOTE | 2023-11-17 14:38 | MR ---
EXAMINATION TYPE: MR brain wo/w con DATE OF EXAM: 11/16/2023 COMPARISON: NONE HISTORY: Seizure disorder, Hx rectal cancer TECHNIQUE: Multiplanar, multisequence images of the brain and brainstem is performed without and with IV contras t, utilizing 11.5 mL intravenous Gadavist . FINDINGS: Diffusion weighted images demonstrate no evidence of a recent infarct or other diffusion ab normality. There is no extra-axial fluid collection or significant white matter signal abnormality. The ventricular system and cisternal spaces are normal in size and appearance. The brain volume is age appropriate. T2 coronal weighted images show hippocampal gyri to appear symmetric and thought wit hin normal limits. Midline structures demonstrate normal morphology. The craniocervical junction appears within normal limits. Post contrast images demonstrate no abnormal enhancement. The dural venous sinuses appear pa tent. The visualized sinuses are clear and the globes are intact. IMPRESSION: No significant abnormality is seen.
== END | disposition home or self-care (01) ==
LOC: RADMRIMAIN 20:15
PROVIDERS: ATTEND Psychiatry & Neurology Neurology
DX: G40.909 Epilepsy, unspecified, not intractable, without status epilepticus (principal); Z85.048 Personal history of other malignant neoplasm of rectum, rectosigmoid junction, and anus
CPT/HCPCS: 70553; A9585

== ENCOUNTER → 2023-11-19 | Outpatient (CLI) | payer MEDICAID | END | disposition home or self-care (01) | LOC: LABWHC1 06:56 | PROVIDERS: ATTEND Psychiatry & Neurology Neurology | DX: G40.909 Epilepsy, unspecified, not intractable, without status epilepticus (principal) | CPT/HCPCS: 36415; 80177 ==

== ENCOUNTER → 2024-10-11 | Outpatient (CLI) | payer MEDICAID | END | disposition home or self-care (01) | LOC: LABWHC1 07:21 | PROVIDERS: ATTEND Psychiatry & Neurology Neurology | DX: G40.909 Epilepsy, unspecified, not intractable, without status epilepticus (principal) | CPT/HCPCS: 36415; 80177 ==

== ENCOUNTER → 2025-02-05 | Outpatient (CLI) | payer MEDICAID ==
[2025-02-05 16:06] LABS: Basophils # (A) 0.03 X 10*3/uL (0.00-0.10); Basophils % (A) 0.5 %; Eosinophils # (A) 0.18 X 10*3/uL (0.04-0.35); Eosinophils % (A) 3.1 %; HCT 45.6 % (39.6-50.0); HGB 15.6 g/dL (13.0-17.0); Immature Grans, Automated 0.30 %; Lymphocytes # (A) 1.67 X 10*3/uL (0.90-5.00); Lymphocytes % (A) 28.9 %; MCH 29.4 pg (27.0-32.0); MCHC 34.2 g/dL (32.0-37.0); MCV 86.0 FL (80.0-97.0); Monocytes # (A) 0.42 X 10*3/uL (0.20-1.00); Monocytes % (A) 7.3 %; NRBC Per 100 WBC 0 X 10*3/uL (0.00-0.01); Neutrophils # (A) 3.46 X 10*3/uL (1.80-7.70); Neutrophils % (A) 59.9 %; Platelet Count 205 X 10*3/uL (140-440); RBC 5.30 X 10*6/uL (4.40-5.60); RDW 12.5 % (11.5-14.5); WBC 5.78 X 10*3/uL (4.50-10.00)
[2025-02-05 16:16] LABS: BUN/Creat Ratio 20.10 Ratio (12.00-20.00); Blood Urea Nitrogen 20.1 mg/dL (9.0-27.0); Chloride 105 mmol/L (96-109); Glucose 94 mg/dL (70-110); Potassium 3.9 mmol/L (3.5-5.5); Sodium 139 mmol/L (135-145)
[2025-02-05 16:17] LABS: ALT 45 U/L (10-49); AST 28 U/L (14-35); Albumin 4.5 g/dL (3.8-4.9); Albumin/Globulin Ratio 1.88 Ratio (1.60-3.17); Alkaline Phosphatase 82 U/L (41-126); Anion Gap 12.80 mmol/L (4.00-12.00); Calcium 9.5 mg/dL (8.7-10.3); Carbon Dioxide 21.2 mmol/L (21.6-31.8); Globulin 2.4 g/dL (1.6-3.3); Prostate Specific Antigen 1.13 ng/mL (0.000-2.500); Total Protein 6.9 g/dL (6.2-8.2)
== END | disposition home or self-care (01) ==
LOC: LABWHC1 08:34
PROVIDERS: ATTEND Family Medicine
DX: Z00.00 Encounter for general adult medical examination without abnormal findings (principal); Z12.5 Encounter for screening for malignant neoplasm of prostate; E55.9 Vitamin D deficiency, unspecified; R73.9 Hyperglycemia, unspecified; Z80.42 Family history of malignant neoplasm of prostate
CPT/HCPCS: 36415; 80053; 82306; 83036; 84153; 84443; 85025